=== PATIENT | male | born 1995 | race Caucasian/White ===

== ENCOUNTER → 2020-10-06 12:10 | Outpatient (BNVA) | payer SELFPAY | PROVIDERS: PCP Hospitalist; Visit Provider Physician Assistant | DX: Z76.89 Persons encountering health services in other specified circumstances (principal) ==

== ENCOUNTER → 2021-06-09 08:27 | Outpatient (BNVA) | payer OTHER, SELFPAY | PROVIDERS: PCP Hospitalist | DX: Z20.822 Contact with and (suspected) exposure to COVID-19 (principal) | CPT/HCPCS: 36415; 87635; 99202 ==

== ENCOUNTER → 2021-06-17 12:28 | Outpatient (BNVA) | payer OTHER, SELFPAY | PROVIDERS: PCP Hospitalist; Visit Provider Physician Assistant Medical | DX: Z20.822 Contact with and (suspected) exposure to COVID-19 (principal) | CPT/HCPCS: 99213 ==

== ENCOUNTER 2024-01-28 10:57 | Outpatient (AMB) | payer BC, SELFPAY ==
--- NOTE | 2024-01-28 11:05 | A.OFFVIS_ITS ---
Intake Vital Signs 01/28/24 11:06 Height 5 ft 10 in Weight 156 lb 8.451 oz BMI 22.5 BP 128/73 Blood Pressure Location Lt brachial Intake Visit Reasons: Endoscopy Screening Intake Note: New patient here for Endoscopy Screening and stomach issues start over 2 months ago. 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 Started noticing abd discomfort over the past 2 months which he describes a diffuse ache in LUQ and RUQ which radiates downwards. Assoc with nausea but no vomiting. No changes in bowel habits. Weight stable. Appetite is ok. Has cut down a lot of empiric food groups such as gluten, dairy, caffeine, etOH. Used to smoke 1PPD x 3 years. Quit 8 years ago. EtOH intake was limited to spiked seltzers. Sexually active but doubts any STIs. No travel recently, went to [place] last year. No new meds. No OTC or CAM. Had EGD in 2019 that showed gastric ulcers per his report + ? esophagitis. US Abd done by PCP normal. Started Omeprazole 20 2 months ago without much response. [facility] Medical History (Updated 01/29/24 @ 09:50 by Sonam Cadet MD) Lyme disease Surgical History (Updated 01/28/24 @ 11:22 by Florencia Maciel MA) Hx of appendectomy Social History (Updated 01/28/24 @ 11:13 by Florencia Maciel MA) Household Members: Significant Other Housing: House Alcohol intake: current Alcohol intake frequency: holidays/special occasions only Patient Tobacco Use Status: Never used Tobacco Review of Systems Const All systems reviewed & are unremarkable except as noted in HPI and below Physical Exam Vital Signs: Last Vital Signs BP 128/73 01/28/24 11:06 BMI result Body Mass Index 22.5 Gen appear: NAD HEENT: nonicteric, no cervical lymphadenopathy Chest: CTA CVS: Regular S1/S2 Abd: soft, nontender, nondistended, bowel sounds + Ext: no peripheral edema Neuro: A/Ox3, noted to move all extremities spontaneously Psych: interacting appropriately Assessment & Plan Assessment & Plan (1) Abdominal pain: Code(s): R10.9 - Unspecified abdominal pain (2) Nausea: Code(s): R11.0 - Nausea (3) History of gastric ulcer: Code(s): Z87.11 - Personal history of peptic ulcer disease Plan Ddx include GERD, PUD, celiac, IBD, MCAS, abdominal migraine or angioedema. Plan: - Labs ordered as below - Increase omeprazole to BID - Add carafate x 14 days - EGD to be booked Follow up after scope Orders: Orders Transglutaminase IgA 01/28/24 R10.9 - Unspecified abdominal pain TSH reflex Free T4 01/28/24 R10.9 - Unspecified abdominal pain Tryptase 01/28/24 R10.9 - Unspecified abdominal pain Immunoglobulin A 01/28/24 R10.9 - Unspecified abdominal pain Erythrocyte Sedimentation Rate 01/28/24 R10.9 - Unspecified abdominal pain Complement C4 01/28/24 R10.9 - Unspecified abdominal pain Medications: New sucralfate 1 g PO QIDACHS 14 days 60 tabs 0RF Coding Level of Care Code New Pt Level 4 (01107) Diagnoses Abdominal pain R10.9 Nausea R11.0 History of gastric ulcer Z87.11
[2024-01-28 11:06] VITALS: BP 128/73; BMI 22.5
== END 2024-01-28 11:39 | disposition home or self-care (01) ==
PROVIDERS: PCP Hospitalist; Visit Provider Internal Medicine
DX: R10.9 Unspecified abdominal pain (principal); R11.0 Nausea; Z87.11 Personal history of peptic ulcer disease
CPT/HCPCS: 99204

== ENCOUNTER → 2024-01-28 10:57 | Outpatient (BNVA) | payer OTHER, SELFPAY | PROVIDERS: PCP Hospitalist; Visit Provider Internal Medicine ==

== ENCOUNTER 2024-01-31 09:39 | Day surgery (SDC) | payer BC, SELFPAY ==
[2024-01-31 11:18] VITALS: BMI 21.8
[2024-01-31 11:24] VITALS: BP 119/77; PULSE 60; RESP 16; TEMP 36.4; O2SAT 100
--- NOTE | 2024-01-31 12:22 | HO.ANESPROP2 ---
[facility] Active Problems Active Problems: All Active Problems (Updated 01/29/24 @ 09:50 by Sonam Cadet MD) History of gastric ulcer (Acute) Nausea (Acute) Abdominal pain (Acute) Past Medical History Medical History Lyme disease Family History Family history of problems with anesthesia: No Surgical History Surgical History (Updated 01/31/24 @ 11:22 by Joselyn Bernardo RN) Hx of esophagogastroduodenoscopy Hx of colonoscopy Hx of appendectomy History of Problems with Anesthesia: No Social History Social History (Updated 01/28/24 @ 11:13 by Florencia Maicel MA) Household Members: Significant Other Housing: House Alcohol intake: current Alcohol intake frequency: holidays/special occasions only Patient Tobacco Use Status: Never used Tobacco Use of substances other than those prescribed or required for medical reasons: No Are you DNR?: No Advance Directives: No Advance Directives Information Provided: Yes Meds Allergies Allergy/AdvReac Type Severity Reaction Status Date / Time No Known Allergies Allergy Verified 01/31/24 11:23 Home Medications Medication Instructions Recorded Confirmed Last Taken Type omeprazole 20 mg capsule,delayed 20 mg PO DAILY 01/28/24 01/31/24 Unknown History release ondansetron 4 mg disintegrating 2 mg PO Q6-8H PRN Nausea 01/28/24 01/31/24 Unknown History tablet Exam Height,Weight and Vital Signs: Height 5 ft 10 in Weight 68.946 kg Last Vital Signs Temp 97.5 F 01/31/24 11:24 Pulse 60 01/31/24 11:24 Resp 16 01/31/24 11:24 BP 119/77 01/31/24 11:24 Pulse Ox 100 01/31/24 11:24 O2 Del Method Room Air 01/31/24 11:24 Airway Mallampati Class: I TM Dist: >3cm Neck ROM: Full Loose/Missing/Broken Teeth: No Heart: rrr Lungs: cta b/l Assessment and Plan Final Anesthetic Review Family History of Problems with Anesthesia: No History of Problems with Anesthesia: No NPO: Yes ASA Class: II Final Preanesthetic Review: No Changes in Pt Med Stat, Meds/Allgs Chart Reviewed, Consent Obtained/Reviewed and Anes Risks/Benef Reviewed Patient Risk: Intermediate Procedure Risk: Intermediate Anesthetic Plan Anesthetic Plan: MAC: Disposition: Standard PACU
--- NOTE | 2024-01-31 12:29 | MHC.SHP ---
Pre-Procedural Eval Section A - 24 Hr Update-Section A only Date of Service: 01/31/24 The patient is an INPATIENT: No The patient has been examined within 24 hours of the surgical procedure. The History & Physical has been completed within 30 days and I have reviewed it.: Yes Section B - Complete if H&P > 30 days Chief Complaint: Unspecified abdominal pain Allergies: Allergies Allergy/AdvReac Type Severity Reaction Status Date / Time No Known Allergies Allergy Verified 01/31/24 11:23 Plan Diagnosis/Plan: Unchanged I have reviewed the history and physical and performed a pertinent physical examination on my patient. No changes have occurred unless specified. Time Spent With Patient Time: Total time managing care of this patient today ____ minutes.
--- NOTE | 2024-01-31 12:33 | P.OP_ITS ---
Operative Note Operative Note Date of Service: 01/31/24 Narrative: Procedure: Esophagogastroduodenoscopy Endoscopist: Sonam Cadet MD Indication: Epigastric pain, hx of gastric ulcers Anesthesia Provider: Dr Tanner Robles Anesthesia Type: MAC ?? EGD Procedure:?? The procedure, indications, preparation and potential complications were reviewed with the patient, who indicated understanding and gave written informed consent to proceed. A physical exam was performed. The endoscope was introduced through the mouth, and advanced to the second part of duodenum. The mucosa was carefully examined on slow withdrawal of the endoscope. The patient tolerated the procedure well. There were no immediate complications.? ? EGD Findings:? * Esophagus:? Normal mucosa noted in the entire esophagus. The Z line was at 38 cm and irregular with the longest tongue of SCM extending up to 36 cm. Cold forceps biopsies were taken to rule out Richardson's esophagus. These will also be sent for tissue cypher if dysplasia confirmed. * Stomach:? Normal mucosa was noted in the stomach. Random gastric biopsies were taken to rule out H Pylori infection. * Duodenum:? Normal mucosa was noted in the whole of the examined duodenum. Cold forceps biopsies were taken from duodenal bulb and second portion of the duodenum to rule out celiac sprue. ? EGD Impressions:? * Irregular Z line suspicious for BE (biopsy) * Normal stomach (biopsy) * Normal duodenum (biopsy) ?? Recommendations:?? * Follow biopsy results. Our office will call or send a letter with results within 7-10 days. * Continue PPI therapy. * Avoid NSAIDs. Above has been reviewed with the patient.
[2024-01-31 12:50] VITALS: BP 104/50; PULSE 74; RESP 12; TEMP 36.1; O2SAT 97
[2024-01-31 13:05] VITALS: BP 104/57; PULSE 47; RESP 18; O2SAT 97
== END 2024-01-31 14:23 | disposition home or self-care (01) ==
PROVIDERS: PCP Nurse Practitioner Family; Visit Provider Internal Medicine
PROC: 0DJ08ZZ Inspection of Upper Intestinal Tract, Via Natural or Artificial Opening Endoscopic (ICD-10-PCS; CPT 43235; principal; 2024-01-31 12:20)
DX: R10.11 Right upper quadrant pain (principal); R10.12 Left upper quadrant pain; R11.0 Nausea; Z87.11 Personal history of peptic ulcer disease; K22.89 Other specified disease of esophagus; A69.20 Lyme disease, unspecified; Z79.899 Other long term (current) drug therapy; Z98.890 Other specified postprocedural states; Z87.891 Personal history of nicotine dependence
CPT/HCPCS: 43239; 88305; 88313; 88342; J2704

== ENCOUNTER → 2024-01-31 09:39 | Outpatient (BNV) | payer BC, SELFPAY | PROVIDERS: PCP Nurse Practitioner Family; Visit Provider Internal Medicine | DX: R10.13 Epigastric pain (principal); Z87.11 Personal history of peptic ulcer disease; K22.89 Other specified disease of esophagus | CPT/HCPCS: 43239 ==

== ENCOUNTER 2024-04-21 08:57 | Outpatient (AMB) | payer BC, SELFPAY ==
--- NOTE | 2024-04-21 08:58 | MHC.OFFVIS ---
Intake Visit Reasons: follow up for results Intake Note: Kyree presents as a telehealth to a follow up for results. CC: states that he is not having any concerns at this time. 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 Started noticing abd discomfort over the past 2 months which he describes a diffuse ache in LUQ and RUQ which radiates downwards. Assoc with nausea but no vomiting. No changes in bowel habits. Weight stable. Appetite is ok. Has cut down a lot of empiric food groups such as gluten, dairy, caffeine, etOH. Used to smoke 1PPD x 3 years. Quit 8 years ago. EtOH intake was limited to spiked seltzers. Sexually active but doubts any STIs. No travel recently, went to [place] last year. No new meds. No OTC or CAM. Had EGD in 2019 that showed gastric ulcers per his report + ? esophagitis. US Abd done by PCP normal. Started Omeprazole 20 2 months ago without much response. 01/31/24: Irregular Z line suspicious for BE (biopsy) Normal stomach (biopsy) Normal duodenum (biopsy)?? Path: A. Duodenum, biopsy: Duodenal mucosa within normal limits. B. Stomach, random, biopsy: Antral-type and oxyntic mucosa with mild chronic inactive inflammation; no Helicobacter organisms seen. C. Irregular Z-line, biopsy: - Cardiofundic-type mucosa with moderate chronic inactive inflammation; no intestinal metaplasia seen. - Squamous mucosa within normal limits. 04/21/24: Booked as a televisit. Reports pain on R and L side a bit better but not completely gone. Has seen functional medicine and has been told gut microbiome is off including H Pylori. To recall stool Ag and bx were NEG on testing here. Stopped Omeprazole 1 month ago. [facility] Medical History Lyme disease Surgical History (Updated 01/31/24 @ 11:22 by Joselyn Bernardo RN) Hx of esophagogastroduodenoscopy Hx of colonoscopy Hx of appendectomy Social History (Updated 01/28/24 @ 11:13 by Florencia Enoc, MA) Household Members: Significant Other Housing: House Alcohol intake: current Alcohol intake frequency: holidays/special occasions only Patient Tobacco Use Status: Never used Tobacco Review of Systems Const All systems reviewed & are unremarkable except as noted in HPI and below Physical Exam Vital Signs: televisit: NAD Speaking in full sentences No obv resp distress Telehealth Telehealth Telehealth Platform: [employer] Location of provider rendering services: practice address Location of patient: other (workplace) Patient Identification confirmed using: Name, : Yes Telehealth method: video Patient verbally consented to treatment: Yes Patient verbally consented to billing insurance company: Yes Patient informed of any privacy concerns related to visit: Yes Minutes spent on Phone/Video with Pt.: 12 Assessment & Plan Assessment & Plan (1) Abdominal pain: Code(s): R10.9 - Unspecified abdominal pain Category: Medical (2) Nausea: Code(s): R11.0 - Nausea Category: Medical Plan Reassured pt that mild esophagitis and gastritis but otherwise no evidence of PUD or celiac based on endoscopic eval. Labs still pending to w/up other etiologies such as MCAS, abdominal migraine, angioedema, thyroid abnl etc. Reordered and pt reminded to get these done. Will also get RUQ ultrasound to r/o symptomatic cholelithiasis. If above neg, next step would be neuromodulator trial. Considered food allergen testing but pain does not correlate with eating. Follow up after above testing done. Orders: Orders US abdomen complete Today R10.9 - Unspecified abdominal pain Complement C4 Today R10.9 - Unspecified abdominal pain Erythrocyte Sedimentation Rate Today R10.9 - Unspecified abdominal pain TSH reflex Free T4 Today R10.9 - Unspecified abdominal pain Immunoglobulin A Today R10.9 - Unspecified abdominal pain Transglutaminase IgA Today R10.9 - Unspecified abdominal pain Tryptase Today R10.9 - Unspecified abdominal pain Coding Level of Care Code Tele Est Pt Level 4 (37434) Diagnoses Abdominal pain R10.9 Nausea R11.0
== END 2024-04-21 09:45 | disposition home or self-care (01) ==
LOC: HO.HGI 08:57
PROVIDERS: PCP Nurse Practitioner Family; Visit Provider Internal Medicine
DX: R10.9 Unspecified abdominal pain (principal); R11.0 Nausea
CPT/HCPCS: 99213

== ENCOUNTER → 2024-04-21 08:57 | Outpatient (BNVA) | payer BC, SELFPAY | PROVIDERS: PCP Nurse Practitioner Family; Visit Provider Internal Medicine ==

== ENCOUNTER 2024-07-07 09:32 | Outpatient (AMB) | payer BC, SELFPAY ==
--- NOTE | 2024-07-07 09:36 | A.OFFVIS_ITS ---
Vital Signs 07/07/24 09:39 Height 5 ft 10 in Weight 149 lb 14.629 oz BMI 21.5 BP 126/61 Blood Pressure Location Lt brachial Position Sitting Pulse 72 Intake Visit Reasons: 3 month follow up Intake Note: Kyree presents in the office as a 3 month follow up. CC: He states that he is losing weight he states that he is here because he is having issues with his stomach. 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 Started noticing abd discomfort over the past 2 months which he describes a diffuse ache in LUQ and RUQ which radiates downwards. Assoc with nausea but no vomiting. No changes in bowel habits. Weight stable. Appetite is ok. Has cut down a lot of empiric food groups such as gluten, dairy, caffeine, etOH. Used to smoke 1PPD x 3 years. Quit 8 years ago. EtOH intake was limited to spiked seltzers. Sexually active but doubts any STIs. No travel recently, went to [place] last year. No new meds. No OTC or CAM. Had EGD in 2019 that showed gastric ulcers per his report + ? esophagitis. US Abd done by PCP normal. Started Omeprazole 20 2 months ago without much response. 01/31/24: * Irregular Z line suspicious for BE (biopsy) * Normal stomach (biopsy) * Normal duodenum (biopsy)?? Path: A. Duodenum, biopsy: Duodenal mucosa within normal limits. B. Stomach, random, biopsy: Antral-type and oxyntic mucosa with mild chronic inactive inflammation; no Helicobacter organisms seen. C. Irregular Z-line, biopsy: - Cardiofundic-type mucosa with moderate chronic inactive inflammation; no intestinal metaplasia seen. - Squamous mucosa within normal limits. 04/21/24: Booked as a televisit. Reports pain on R and L side a bit better but not completely gone. Has seen functional medicine and has been told gut microbiome is off including H Pylori. To recall stool Ag and bx were NEG on testing here. Stopped Omeprazole 1 month ago. 07/07/24: Here for follow up. Reports persistent severe abd pain that is generalised, not related to food intake or defecation. By this point has been >6 months now. Also seeing integrative med at [place] and taking a combination of probiotics and CAM supplements to help with bacterial overhrowth and H pylori. See above. US was ordered last visit - pt has had this already 4-5 months ago through his PCP office and was normal. Labs pending yet again - originally ordered in January 2024 and reordered in April 2024. [facility], [facility] Medical History Lyme disease Surgical History Hx of esophagogastroduodenoscopy Hx of colonoscopy Hx of appendectomy Social History Household Members: Significant Other Housing: House Alcohol intake: current Alcohol intake frequency: holidays/special occasions only Patient Tobacco Use Status: Never used Tobacco Review of Systems Const All systems reviewed & are unremarkable except as noted in HPI and below Physical Exam Vital Signs: Last Vital Signs Pulse 72 07/07/24 09:39 BP 126/61 07/07/24 09:39 BMI result Body Mass Index 21.5 No apparent distress Nonicteric Abdomen soft, nondistended Alert and oriented x3, normal gait Assessment & Plan Assessment & Plan (1) Abdominal pain: Code(s): R10.9 - Unspecified abdominal pain Category: Medical (2) Nausea: Code(s): R11.0 - Nausea Category: Medical Plan Reassured pt that mild esophagitis and gastritis but otherwise no evidence of PUD or celiac based on endoscopic eval. Labs still pending to w/up other etiologies such as MCAS, abdominal migraine, angioedema, thyroid abnl etc. Reordered and pt reminded to get these done. CT abd/pel to r/o extraluminal causes. If negative, will proceed with diagnostic colo. 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 A hand out on DGBI was provided to the pt. Follow up 6 weeks - pt prefers tele which is ok Orders: Orders Erythrocyte Sedimentation Rate Today R10.9 - Unspecified abdominal pain, R11.0 - Nausea Transglutaminase IgA Today R10.9 - Unspecified abdominal pain, R11.0 - Nausea TSH reflex Free T4 Today R10.9 - Unspecified abdominal pain, R11.0 - Nausea CT abdomen pelvis w IV con Today R10.9 - Unspecified abdominal pain, R11.0 - Nausea Complement C4 Today R10.9 - Unspecified abdominal pain, R11.0 - Nausea Immunoglobulin A Today R10.9 - Unspecified abdominal pain, R11.0 - Nausea Tryptase Today R10.9 - Unspecified abdominal pain, R11.0 - Nausea Coding Level of Care Code Est Pt Level 4 (00597) Diagnoses Abdominal pain R10.9 Nausea R11.0
[2024-07-07 09:39] VITALS: BP 126/61; PULSE 72; BMI 21.5
== END 2024-07-07 10:22 | disposition home or self-care (01) ==
PROVIDERS: PCP Nurse Practitioner Family; Visit Provider Internal Medicine
DX: R10.9 Unspecified abdominal pain (principal); R11.0 Nausea
CPT/HCPCS: 99214

== ENCOUNTER 2024-07-07 09:32 | Outpatient (REF) | payer BC, SELFPAY ==
[2024-07-07 11:34] LABS: Erythrocyte Sedimentation Rate 1 MM/HR (0-15)
[2024-07-08 09:29] LABS: Immunoglobulin A 202 mg/dL (47-310)
[2024-07-08 22:38] LABS: Transglutaminase IgA <1.0 U/mL
== END 2024-07-07 09:33 | disposition home or self-care (01) ==
LOC: HO.LAB 09:32
PROVIDERS: PCP Nurse Practitioner Family; Visit Provider Internal Medicine
DX: R10.9 Unspecified abdominal pain (principal)
CPT/HCPCS: 36415; 82784; 83520; 84443; 85652; 86160; 86364

== ENCOUNTER 2024-08-27 13:40 | Outpatient (AMB) | payer BC, SELFPAY ==
--- NOTE | 2024-08-27 13:41 | A.OFFVIS_ITS ---
Intake Visit Reasons: 6 week f/u CAPS Intake Note: Kyree presents as a telehealth 6 week follow up for CAPS. CC: He states that he is not having any concerns at this time and just to go over some results. 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 Started noticing abd discomfort over the past 2 months which he describes a diffuse ache in LUQ and RUQ which radiates downwards. Assoc with nausea but no vomiting. No changes in bowel habits. Weight stable. Appetite is ok. Has cut down a lot of empiric food groups such as gluten, dairy, caffeine, etOH. Used to smoke 1PPD x 3 years. Quit 8 years ago. EtOH intake was limited to spiked seltzers. Sexually active but doubts any STIs. No travel recently, went to [place] last year. No new meds. No OTC or CAM. Had EGD in 2019 that showed gastric ulcers per his report + ? esophagitis. US Abd done by PCP normal. Started Omeprazole 20 2 months ago without much response. 01/31/24: * Irregular Z line suspicious for BE (biopsy) * Normal stomach (biopsy) * Normal duodenum (biopsy)?? Path: A. Duodenum, biopsy: Duodenal mucosa within normal limits. B. Stomach, random, biopsy: Antral-type and oxyntic mucosa with mild chronic inactive inflammation; no Helicobacter organisms seen. C. Irregular Z-line, biopsy: - Cardiofundic-type mucosa with moderate chronic inactive inflammation; no intestinal metaplasia seen. - Squamous mucosa within normal limits. 04/21/24: Booked as a televisit. Reports pain on R and L side a bit better but not completely gone. Has seen functional medicine and has been told gut microbiome is off including H Pylori. To recall stool Ag and bx were NEG on testing here. Stopped Omeprazole 1 month ago. 07/07/24: Here for follow up. Reports persistent severe abd pain that is generalised, not related to food intake or defecation. By this point has been >6 months now. Also seeing integrative med at [place] and taking a combination of probiotics and CAM supplements to help with bacterial overhrowth and H pylori. See above. US was ordered last visit - pt has had this already 4-5 months ago through his PCP office and was normal. Labs pending yet again - originally ordered in January 2024 and reordered in April 2024. 08/27/24: Presentign as telehealth follow up. Here for results of labs ordered at previous visit. These were briefly reviweed with the pt over the phone when the results became available back in Jun. He is due to see allergy and immunology. Sx price feeling better. CT abd/pel not approved by insurance and pt prefers to hold off since sx better. Reviewed that low C4 MAY be assoc with MACS however will need further testing through human resources manager manufacturing office for dx. Reports intermittent bloating which doesnt always correlate with the timing of abd pain. Laboratory Tests 07/07/24 10:25 ESR 1 Tryptase 3.6 TSH 1.30 IgA 202 Tiss Transglutamin IgA <1.0 Complement C4 11 L PFSH Medical History Lyme disease Surgical History Hx of esophagogastroduodenoscopy Hx of colonoscopy Hx of appendectomy Social History Household Members: Significant Other Housing: House Alcohol intake: current Alcohol intake frequency: holidays/special occasions only Patient Tobacco Use Status: Never used Tobacco Review of Systems Const All systems reviewed & are unremarkable except as noted in HPI and below Physical Exam Vital Signs: Video visit: No acute distress No icterus noted No facial asymmetry Speaking in full sentences Telehealth Telehealth Telehealth Platform: [facility] Location of provider rendering services: practice address Location of patient: address on file Patient Identification confirmed using: Name, : Yes Telehealth method: video Patient verbally consented to treatment: Yes Patient verbally consented to billing insurance company: Yes Patient informed of any privacy concerns related to visit: Yes Minutes spent on Phone/Video with Pt.: 18 Assessment & Plan Assessment & Plan (1) Abdominal pain: Code(s): R10.9 - Unspecified abdominal pain Category: Medical (2) Nausea: Code(s): R11.0 - Nausea Category: Medical (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 For intemittent bloating, triggers reviewed. Will also send low FODMAP diet handout via portal. 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
== END 2024-08-27 15:58 | disposition home or self-care (01) ==
LOC: HO.HGI 13:41
PROVIDERS: PCP Nurse Practitioner Family; Visit Provider Internal Medicine
DX: R10.9 Unspecified abdominal pain (principal); R11.0 Nausea; D84.1 Defects in the complement system
CPT/HCPCS: 99499

== ENCOUNTER → 2024-08-27 13:40 | Outpatient (BNVA) | payer BC, SELFPAY | PROVIDERS: PCP Nurse Practitioner Family; Visit Provider Internal Medicine ==